=== PATIENT | male | born 1960 | race Hispanic/Latino ===

== ENCOUNTER 2024-06-14 00:56 | Emergency (ER) | payer SELFPAY ==
[~2024-06-14] VITALS: Ht 160 cm; Wt 70.8 kg
[2024-06-14] MEDS ORDERED: ACYC-138 PO (02:24)
[2024-06-14] MEDS ORDERED: PRED20TA3 PO (02:24)
[2024-06-14] MEDS: predniSONE 20 MG TABLET PO ONE (02:26)
--- NOTE | 2024-06-14 02:29 | ERN ---
General Chief Complaint: Eye Problems Stated Complaint: C/O REDNESS TO LEFT EYE ONSET WEDNESDAY Time Seen by MD: :05 Time Seen by Midlevel: 01:05 Source: patient History of Present Illness Initial Comments The patient is a 64-year-old male presenting to the emergency department for evaluation of left eye redness. Patient states his symptoms started two days ago. Over the last 48 hours he was noticed an increasing weakness to his left side of the face. He states the weakness has an Allergies: Coded Allergies: No Known Allergies (Unverified Allergy, Unknown, 06/14/24) Past Medical History Past Medical History: No Pertinent History Past Surgical History: None ROS Dictation CONSTITUTIONAL: Negative except for HPI HEAD/FACE: Negative except for HPI EENT: Negative except for HPI RESPIRATORY: Negative except for HPI GASTROINTESTINAL/ABDOMINAL: Negative except for HPI GENITOURINARY: Negative except for HPI MUSCULOSKELETAL: Negative except for HPI INTEGUMENTARY: Negative except for HPI NEUROLOGICAL/PSYCH: Negative except for HPI HEMATOLOGIC/LYMPHATIC: Negative except for HPI All Systems Negative, Except as noted above. 13 point review of systems assessed and all negative except for above. Physical Exam Physical Exam Dictation Vital Signs reviewed General Appearance: Alert, oriented x 3, no acute distress, well developed, nourished. Head and Face: non-traumatic. Eyes: PERRL, pink conjunctivas, eyelid no trauma, anterior chamber with arcus senilis. Ears: Pinnas intact and no signs of trauma or erythema ear canals clear and no discharge TM no erythema Nose: No discharge, no bleeding. Oropharynx: Mouth normal, tongue pink, pharynx clear,no erythema, tonsils no exudates, no abscesses noted, mucous membrane moist Neck: Supple, non-tender, no thyromegaly, no masses, no JVD, no bruits Breast:Deferred Chest:No tenderness, no crepitus, no paradoxical movement, no retractions Lungs:Clear, well-ventilated, symmetric, no rales, no wheezing, no rhonchi, no stridor, good breath sounds bilaterally Heart: Regular rate, regular rhythm, no murmur, no gallops Vascular: no peripheral edema, Abdomen: Soft, positive bowel sounds, nondistended, no guarding, nontender, no rebound, no masses no hepatomegaly, no splenomegaly, no Herrera's sign, no hernias. Rectal: Deferred Genital: Deferred Neurological: Normal speech, motor function intact, sensory function intact, left facial droop with forehead involvement Musculoskeletal: Neck nontender, full range of motion, back nontender, full r heide of motion, Extremities: nontender, full range of motion Skin: Color pink, dry, no turgor, no rash, no lacerations, no abrasions, no contusions. Lymphatic: Deferred MDM MDM: Patient is a 64-year-old male presenting to the ER with left eye redness. He states that for the last 48 hours he was noticed weakness to the left side of his face. Denies any recent illness. Denies any weakness to upper or lower extremities. Denies any other symptoms. Initial vital signs are stable. On physical examination the patient was in no acute distress. He was a mild left facial droop with forehead involvement. He was 5/5 strength to bilateral upper and lower extremities. He was ambulatory with a normal gait without assistance. His GCS is 15. Sensation is intact to his face. 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 Patient was started on steroids in the emergency department and will be discharged home with supportive management. Differential diagnosis: Brennan's palsy, stroke, There are no social concerns with this patient. Prescription drug management Prescriptions will include: Prednisone and acyclovir Medical management and examination interpretation discussions were had by me with other qualified healthcare professionals as indicated for the patient's care. ED Course Orders Procedure Category Date Status Time Prednisone 20mg Tab PHA 06/14/24 Complete (Deltasone/Orasone 2 01:30 Current Medications Medications (Trade) Dose Ordered Sig/Lupe Route PRN Reason Start Time Stop Time Status Last Admin Dose Admin Prednisone (deltaSONE/ oraSONE 20MG TAB) 40 mg ONCE ONCE PO 06/14/24 01:30 06/14/24 01:31 DC Vital Signs Date Time Temp Pulse Resp B/P (MAP) Pulse Ox O2 Delivery O2 Flow Rate FiO2 06/14/24 01:00 97.2 63 20 143/87 97 Room Air DX & DISP Disposition: Discharge Departure Impression: Primary Impression: Brennan's palsy Condition: Stable Scripts Prednisone (Prednisone) 20 Mg Tablet 1 TAB PO BID for 5 Days, #10 TAB 0 Refills Prov: SIMON LINTON 06/14/24 Acyclovir (Acyclovir) 800 Mg Tablet 1 TAB PO 5XDAY for 7 Days, #35 TAB 0 Refills Prov: SIMON LINTON 06/14/24 Additional Instructions: Please use artificial tears/lubrication eyedrops while your awake to protect your eye. At night you may use tape to shut your left eye to avoid any corneal injury. I have given you a prescription for steroids and antivirals which should help your symptoms improve over the next couple of days. Referrals: SELF,REFERRAL (PCP) Time of Disposition: 02:25 I have reviewed the case, and I agree with, Diagnosis and Plan I performed the substantive portion of the visit. I have reviewed and perso mariusz made and approve the management plan that is documented in the note by myself or the MIGUEL. I acknowledge for responsibility for the patient's management plan. SIMON LINTON Jun 14, 2024 02:29
[2024-06-14 02:50] VITALS: BP 132/84; PULSE 66; RESP 16; TEMP 98.2; O2SAT 97
== END 2024-06-14 02:51 | disposition home or self-care (01) ==
LOC: EDH 00:56
DX: G51.0 Bell's palsy (principal)
CPT/HCPCS: 99283